=== PATIENT | male | born 1965 | race African-American/Black ===

== ENCOUNTER 2024-12-22 07:41 | Emergency (ER) | payer OTHER ==
[~2024-12-22] VITALS: Ht 185.4 cm; Wt 122.7 kg
[2024-12-22 07:47] VITALS: TEMP 98.2
[2024-12-22] MEDS ORDERED: ROSU10TA98 PO (07:56)
[2024-12-22] MEDS ORDERED: LOSA-381 PO (07:56)
[2024-12-22] MEDS: ASPIRIN 81 MG CHEWABLE TABLET PO ONE (08:07)
[2024-12-22] MEDS: NITROGLYCERIN 0.4 MG SUBLINGUAL TABLET #25 SL ONE (08:07)
[2024-12-22] MEDS: ONDANSETRON HCL 4 MG/2 ML VIAL IVP ONE (08:07)
[2024-12-22] MEDS: MORPHINE SULFATE 4 MG/ML SYRINGE IVP ONE (08:07)
[2024-12-22 08:16] LABS: PLATELET COUNT (AUTO) 269 K/uL (150-450); RED BLOOD CELL COUNT(AUTO) 5.18 MIL/uL (4.50-5.90); RED CELL DISTRIBUTION WIDTH 14.4 % (11.5-14.5); WHITE BLOOD COUNT (AUTO) 5.5 K/uL (4.5-11.0)
[2024-12-22 08:22] LABS: CALCIUM, TOTAL 9.0 mg/dL (8.8-10.5); CREATININE 1.33 mg/dL (0.60-1.30); GLOMERULAR FILTR. RATE CALC > 60 mL/min (>60); GLUCOSE,RANDOM 90 mg/dL (70-110); SODIUM SERUM 137 mmol/L (136-145); UREA NITROGEN, BLOOD 15 mg/dL (7-18)
[2024-12-22 08:30] LABS: TROPONIN I-HIGH SENSITIVITY 6 ng/L (<76)
[2024-12-22 08:31] LABS: CREATINE KINASE, TOTAL ONLY 271 U/L (39-308)
[2024-12-22] MEDS: SODIUM CHLORIDE 0.9% 1,000 ML IV ONE (08:59)
[2024-12-22 09:03] VITALS: BP 110/69; PULSE 78; RESP 18; O2SAT 99
== END 2024-12-22 09:36 | disposition left against medical advice (07) ==
LOC: EMS 07:41
DX: I20.0 Unstable angina (principal); I10 Essential (primary) hypertension; E78.00 Pure hypercholesterolemia, unspecified; F32.A Depression, unspecified; Z79.899 Other long term (current) drug therapy; Z88.5 Allergy status to narcotic agent; Z88.8 Allergy status to other drugs, medicaments and biological substances; Z91.040 Latex allergy status
CPT/HCPCS: 99285; 96374; 71045; 96375; 80048; 82550; 83880; 84484; 85025; 85610; 85730; 93005; J2270; J2405; 36415-L1; 36415-TC